=== PATIENT | male | born 1950 | race African-American/Black ===

== ENCOUNTER → 2017-03-23 | Outpatient (CLI) | payer OTHER ==
--- NOTE | 2017-03-23 11:58 | RAD ---
History: Low back pain Study: Lumbar spine complete Findings: Multiple views of the lumbar spine demonstrates normal alignment. Mild endplate spurring is demonstrated. There are advanced degenerative changes of the lower lumbar apophyseal joints. Pedicle s are intact and no fracture is seen. 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 Reported By:
== END | disposition home or self-care (01) | DRG 552 ==
LOC: RAD 10:47
PROVIDERS: ATTEND Nurse Practitioner Family
DX: M54.5 Low back pain (principal); M47.896 Other spondylosis, lumbar region
CPT/HCPCS: 72110

== ENCOUNTER 2017-06-11 14:36 | Emergency (ER) | payer OTHER ==
[2017-06-11 14:53] VITALS: BP 172/93; BMI 33.5
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
--- NOTE | 2017-06-11 17:16 | CT ---
CT abdomen and pelvis without contrast Indication: Abdominal pain Comparison: None available Technique: Multiple axial images of the abdomen and pelvis were obtained from the lung bases to the pubic symphy sis without the administration of IV contrast. Findings: The lung bases demonstrated a 10 mm ovoid nodular opacity within subpleural left lower lobe on axial image 6. An approximate 3 mm subpleural pulmonary nodules noted within the right lower lobe on axial image 3. Given the limitations of a non contrast examination no abnormality identified within the jesse er. The gallbladder, bile ducts, spleen, pancreas and right adrenal gland are normal. There is an lilibeth roximate 1 cm nodule within the right adrenal gland on axial image 29 chest Hounsfield attenuation co nsistent with an adenoma. The right kidney demonstrates no evidence of nephrolithiasis, hydronephrosi s or mass. The left kidney contains a round hypoattenuating lesion within the midpole consistently cy st based on Hounsfield attenuation. There is no nephrolithiasis or hydronephrosis identified. However , there is left greater than right bilateral perinephric stranding. Upper GI tract demonstrates a chandrakant y small sliding hiatal hernia. There is no evidence of mass or obstruction. Urinary bladder is normal . Prostate gland demonstrates central dystrophic calcifications. The rectum and colon are within norm al limits. Appendix is absent. There is a small left-sided fat containing inguinal hernia. Abdominal aorta is normal in caliber with scattered calcified atherosclerotic disease. Review of bone windows d emonstrates no acute osseous abnormality. Moderate facet arthropathy is noted at L4-5 and L5-S1. Impression 1.No definite acute inflammatory process identified within the abdomen or pelvis; however, left great er than right bilateral perinephric stranding is nonspecific and can be seen in setting of the pyelit is/pyelonephritis and correlation with urinalysis is recommended. 2. A 1 cm left adrenal gland adenoma. 3. Approximate 1 cm left lower lobe and 3 mm right lower lobe subpleural pulmonary nodules needs foll ow-up chest CT in 3 months for further evaluation and documentation of stability. 4. Refer to above for other incidental findings. Reported By:
[2017-06-11] MEDS ORDERED: TORADOL 60 MG VIAL IM ONE (17:46)
[2017-06-11 18:02] LABS: BILIRUBIN,URINE NEGATIVE (NEGATIVE); BLOOD/HEMOGLOBIN,URINE 2+ (NEGATIVE); GLUCOSE, URINE NEGATIVE (NEGATIVE); KETONES,URINE NEGATIVE (NEGATIVE); LEUKOCYTE ESTERASE ,URINE 1+ (NEGATIVE); NITRITES,URINE NEGATIVE (NEGATIVE); PROTEIN,URINE 2+ (NEGATIVE); UROBILINOGEN,URINE NORMAL (NORMAL)
[2017-06-11 18:08] LABS: APPEARANCE,URINE HAZY (CLEAR); BACTERIA,URINE NEGATIVE /HPF (NEGATIVE); COLOR,URINE YELLOW (YELLOW); SQUAMOUS EPITHELIAL CELL,UR NEGATIVE /HPF (NEGATIVE)
[2017-06-11 18:09] LABS: MUCUS,URINE MODERATE /HPF (NEGATIVE)
[2017-06-11] MEDS ORDERED: TORADOL 60 MG VIAL ONE (18:44)
== END 2017-06-11 18:52 | disposition home or self-care (01) ==
LOC: ER 14:57
DX: S39.012A Strain of muscle, fascia and tendon of lower back, initial encounter (principal); S33.5XXA Sprain of ligaments of lumbar spine, initial encounter; R10.84 Generalized abdominal pain; V89.2XXA Person injured in unspecified motor-vehicle accident, traffic, initial encounter
CPT/HCPCS: 74176; 81001; 96372; 99282; 99283; J1885

== ENCOUNTER → 2017-06-28 | Outpatient (CLI) | payer SELFPAY ==
[2017-06-11 14:53] VITALS: BP 172/93
[2017-06-28 08:58] LABS: CREATININE 0.98 mg/dL (0.70-1.30)
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
== END ==
LOC: RAD 08:31
PROVIDERS: ATTEND Nurse Practitioner Family
DX: R91.8 Other nonspecific abnormal finding of lung field (principal)
CPT/HCPCS: 36415; 71250; 82565; 84520; A4222

== ENCOUNTER 2017-07-14 08:35 | Emergency (ER) | payer OTHER ==
[2017-07-14 08:57] VITALS: BP 166/77; BMI 32.8
[2017-07-14] MEDS ORDERED: DUONEB 0.5 MG/3 MG ONE (09:26)
[2017-07-14] MEDS ORDERED: DUONEB 0.5 MG/3 MG NEB ONE (09:27)
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
[2017-07-14 10:05] LABS: BASOPHILS % (AUTO) 0.5 % (0.2-1.0); EOSINOPHILS % (AUTO) 0.4 % (0.9-2.9); HEMATOCRIT 39.4 % (42.0-54.0); HEMOGLOBIN 13.6 g/dL (13.5-18.0); LYMPHOCYTES # (AUTO) 0.8 X10^3/uL (1.3-2.9); MEAN CORPUSCULAR HEMOGLOBIN 30.1 pg (27.0-34.0); MEAN CORPUSCULAR HGB CONC 34.5 g/dL (33.0-35.0); MEAN CORPUSCULAR VOLUME 87.4 fL (80.0-100.0); MEAN PLATELET VOLUME 7.5 fL (7.4-11.0); MONOCYTES # (AUTO) 0.8 x10^3/uL (0.3-0.8); MONOCYTES % (AUTO) 13.4 % (0.0-13.0); NEUTROPHILS # (AUTO) 4.5 x10^3/uL (2.2-4.8); NEUTROPHILS % (AUTO) 72.7 % (42.0-75.0); PLATELET COUNT 245 X10^3/uL (150.0-450.0); RED CELL DISTRIBUTION WIDTH 14.3 % (11.6-16.5); WHITE BLOOD COUNT 6.2 X10^3/uL (3.6-10.0)
--- NOTE | 2017-07-14 10:09 | RAD ---
Examination: Chest, PA and lateral views History: Weakness Comparison reference: None Findings: Normal heart size, tortuous aorta, clear lungs and pleural spaces. There is no mediastinal or hilar abnormality. Impression: No acute chest disease demonstrated. Reported By:
[2017-07-14 10:21] LABS: B-TYPE NATRIURETIC PEPTIDE 52.4 pg/mL (0-79)
[2017-07-14 10:22] LABS: BLOOD UREA NITROGEN 8 mg/dL (7-18); CALCIUM 8.7 mg/dL (8.5-10.1); CARBON DIOXIDE 24.9 mmol/L (21-32); CHLORIDE 103 mmol/L (98-107); COR NA(FOR HYPERGLY) 138 mmol/L (136-145); CREATININE 1.02 mg/dL (0.70-1.30); SODIUM 138 mmol/L (136-145); TROPONIN I < 0.02 ng/mL (0-1.5); eGFR BLACK RACES > 60 (>60); eGFR NON BLACK RACES > 60 (>60)
[2017-07-14 10:25] LABS: ALANINE AMINOTRANSFERASE 24 Units/L (12-78); ALBUMIN 3.4 g/dL (3.4-5.0); ALKALINE PHOSPHATASE 127 Units/L (46-116); ASPARTATE AMINO TRANSFERASE 18 Units/L (15-37); CKMB % 0.9 % (<4); CREATINE KINASE 257 Units/L (39-308); CREATINE KINASE MB 2.3 ng/mL (0-4.0); TOTAL PROTEIN 7.5 g/dL (6.4-8.2)
== END 2017-07-14 10:58 | disposition home or self-care (01) ==
LOC: ER 09:10
DX: J11.1 Influenza due to unidentified influenza virus with other respiratory manifestations (principal); J40 Bronchitis, not specified as acute or chronic; J01.80 Other acute sinusitis
CPT/HCPCS: 36415; 71020; 80053; 82550; 82553; 83880; 84484; 85025; 87040; 87502; 93005; 93010; 99282; 99283; J7620

== ENCOUNTER → 2017-07-20 | Outpatient (CLI) | payer OTHER ==
[~2017-07-20] MED LIST: NS 100 ML IV 100 ML IV ONE
--- NOTE | 2017-07-24 12:14 | CT ---
CT chest with contrast Indication: Abnormal prior CT chest Technique: Helical CT images of the chest were obtained with IV contrast. Reformatted images in the c oronal and sagittal planes were also generated for review. Comparison: CT chest 06/28/2017, CT abdomen and pelvis 06/11/2017 Findings: The heart size is normal without pericardial effusion. Mild three-vessel coronary atheroscl erotic disease is noted. The thoracic aorta is minimally calcified without aneurysm. The central airw ays are patent. There is no lymphadenopathy. There is a 6 mm right upper lobe nodule (image 17, series 5), 3 mm right lower lobe nodule (image 33, series 5) and 9 mm subpleural left lower lobe nodule (image 37, series 5), which are unchanged in si ze and configuration in the short interval. The remainder of the lungs are clear. No pleural effusion or pneumothorax is identified. Limited images of the upper abdomen demonstrate no acute abnormality. No aggressive osseous lesions a re identified. Impression: Subcentimeter bilateral pulmonary nodules, unchanged in the short interval as detailed above. Follow- up CT in 3 months is recommended to ensure stability/resolution. Reported By:
--- NOTE | 2017-07-24 15:45 | MRI ---
HISTORY: Low back pain Study: MRI lumbar spine without contrast Comparison: Lumbar radiographs performed on 03/23/2017 Technique: Multiplanar multi-sequence MRI of the lumbar spine was obtained. Sagittal T1, sagittal T2 , and stir weighted images, axial T1, and axial T2 images were obtained. Findings: Imaging of the lumbar spine demonstrates normal vertebral alignment. There is no spondylolisthesis. V ertebral body height is maintained throughout. No acute or chronic compression fracture is visualized . There is no suspicious bone edema. Minimal reactive edema is identified in the right L5 superior ar ticulating facet and L4 inferior articulating facet secondary to advanced facet arthropathy at this l evel. Multilevel disc desiccation is noted. There are multilevel degenerative endplate changes and ma rginal osteophytosis. The conus terminates at the L3 superior endplate. Evaluation of the pre and par avertebral soft tissues is unremarkable. T12 -- L1: The T12-L1 level is unremarkable. L1 -- L2: At the L1-L2 level there is mild facet hypertrophy without significant canal stenosis or ne uroforaminal compromise. L2 -- L3: At the L2-L3 level there is facet hypertrophy and minimal disc ridging, resulting in mild n euroforaminal compromise on the right and minimal neuroforaminal compromise on the left but no signif icant canal stenosis. L3 -- L4: At the L3-L4 level there is facet hypertrophy and mild broad-based disc ridging, resulting in mild bilateral neuroforaminal compromise but no significant canal stenosis. L4 -- L5: At the L4-L5 level there is facet hypertrophy and ligamentum flavum thickening as well as b road-based disc ridging, resulting in mild bilateral neuroforaminal compromise and mild canal stenosi s. Small bilateral facet joint effusions are noted. Small synovial cysts are visualized posterior to the bilateral facet joints at this level. L5 -- S1: At the L5-S1 level there is advanced facet hypertrophy and broad-based disc ridging, result ing in mild neuroforaminal compromise on the left but no significant canal stenosis. IMPRESSION: 1. Multilevel advanced facet hypertrophy and mild degenerative disc disease, resulting in multilevel mild neuroforaminal compromise as detailed above. Reported By:
== END ==
LOC: RAD 08:08
PROVIDERS: ATTEND Nurse Practitioner Family
DX: R91.8 Other nonspecific abnormal finding of lung field (principal); M51.36 Other intervertebral disc degeneration, lumbar region
CPT/HCPCS: 71260; 72148; A4222

== ENCOUNTER → 2017-08-17 | Outpatient (CLI) | payer OTHER ==
--- NOTE | 2017-08-17 07:20 | RAD ---
Examination: Chest, PA and lateral views History: Pulmonary nodule Comparison 07/14/2017 Findings: Continued normal heart size. No acute pulmonary or pleural or hilar lesion demonstrated. Sm all pulmonary nodules Described on chest CT of 07/20/2017 not identified. Impression: No interval change or acute abnormality noted. Reported By:
[2017-08-17 07:29] LABS: ABG ALLEN TEST POS; ABG BASE EXCESS 3.2 mmol/L (-2.0-2.0); ABG HCO3 27.9 mmol/L (22-26)
== END ==
LOC: LAB 06:48
PROVIDERS: ATTEND Nurse Practitioner Family
DX: R91.1 Solitary pulmonary nodule (principal)
CPT/HCPCS: 36600; 71046; 82803

== ENCOUNTER → 2017-11-08 | Outpatient (CLI) | payer OTHER ==
[~2017-11-08] MED LIST changes: +LEXISCAN IV ONE; -NS 100 ML IV 100 ML IV ONE
== END ==
LOC: RAD 08:25
PROVIDERS: ATTEND Internal Medicine Cardiovascular Disease
DX: R07.9 Chest pain, unspecified (principal)
CPT/HCPCS: 78452; 93017; A4222; A9502; J2785

== ENCOUNTER → 2017-11-13 | Outpatient (CLI) | payer OTHER ==
[~2017-11-13] MED LIST changes: -LEXISCAN IV ONE; +NS 100 ML IV 100 ML IV ONE
[2017-11-13 08:13] LABS: CREATININE 1.03 mg/dL (0.70-1.30)
--- NOTE | 2017-11-13 10:53 | CT ---
History: Follow-up lung nodule Study: CT chest with contrast Findings: [address] imaging through the chest is performed during the intravenous administratio n of an unspecified amount of iodinated contrast. Coronal and sagittal reformatted images are submitt ed as well and comparison made to a study of 07/20/2017. There is limited calcification at the origin of the left subclavian artery. No mediastinal or hilar mass or adenopathy is demonstrated. Within th e right upper lobe seen on image 17 is a slightly irregular nodule which was present previously. Curr ently measures about 8 mm previously measured about 7 mm. Within the periphery of the left lower lobe seen on image number 41 is a slightly irregular pleural-based density measuring approximately 11 mm in maximal dimension and previously measured 10 mm. No other nodules are identified. Visualized upper abdominal structures appear unremarkable with a left midpole renal cyst again demonstrated. Impression: No significant change in size of bilateral pulmonary nodules. Additional six-month follow -up is recommended. Small left renal cyst. Reported By:
--- NOTE | 2017-11-13 11:34 | RAD ---
STUDY: CHEST, TWO VIEWS History: Shortness of breath. Pulmonary nodule. Comparison: Chest radiograph from August 17, 2017. CT chest from November 13, 2017. Findings: The trachea is midline. The lungs are clear of consolidation, significant infiltrate, effusion, or pn eumothorax. The cardiac silhouette, mediastinum and osseous structures are unremarkable. IMPRESSION: 1. No evidence of acute cardiopulmonary abnormality. Pulmonary nodules demonstrated on CT of the Apr 2017 are not visualized on the current chest radiograph. Reported By:
== END ==
LOC: RAD 07:39
PROVIDERS: ATTEND Internal Medicine Sleep Medicine
DX: R06.02 Shortness of breath (principal); R91.1 Solitary pulmonary nodule
CPT/HCPCS: 36415; 71046; 71260; 82565; 84520; A4222